=== PATIENT | male | born 1980 | race African-American/Black ===

== ENCOUNTER 2019-04-08 15:08 | Emergency (ER) | payer OTHER ==
[~2019-04-08] VITALS: Ht 185.4 cm; Wt 62.4 kg
[~2019-04-08 15:08] MED LIST: ATEN50TA PO; CYCL5TAB PO; HYDR-2761 PO; IBUP-1060 PO; LISI-338 PO; LISI2.5T PO
[2019-04-08] MEDS ORDERED: DIPHTH,PERTUSS(ACELL),TET TOX 0.5 ML DISP.SYRIN. VAX IM ONE (15:45)
[2019-04-08 15:50] VITALS: BP 156/95
[2019-04-08] MEDS ORDERED: HYDROcodone/APAP 5/325MG 1 TAB TABLET PO ONE (16:15)
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
--- NOTE | 2019-04-08 16:24 | RAD ---
CT HEAD WO CONTRAST History: Loss of consciousness, nausea and vomiting, function and last night Comparison: None. Technique: Noncontrast CT imaging was performed of the head. Exposure: One or more of the following individualized dose reduction techniques were utilized for this examination: 1. Automated exposure control 2. Adjustment of the mA and/or kV according to patient size 3. Use of iterative reconstruction technique. Findings: No acute extra-axial or parenchymal hemorrhage is identified. There is no significant intra-axial mass effect, midline shift, or extra-axial fluid collection. The carpenter-white differentiation of the major vascular territories is preserved. The ventricles, sulci, and cisterns are within normal limits in size and configuration. Mastoid air cells are aerated. There is what likely represents a mucous retention cyst of the right maxillary sinus posteriorly. No acute calvarial abnormality is identified. Impression: 1. No acute intracranial abnormality is identified. Electronically signed by: Charles Singer MD (04/08/2019 4:21 PM) [id number]
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
[2019-04-08 17:11] LABS: BILIRUBIN,URINE NEGATIVE (NEG); CLARITY,URINE CLEAR; COLOR,URINE YELLOW; NITRITE,URINE NEGATIVE (NEG); PH,URINE 6.5; PROTEIN,URINE NEGATIVE (NEG-TRACE)
[2019-04-08 17:19] LABS: BACTERIA,URINE 0 /HPF (0-FEW); RBC,URINE 0 /HPF (0-2)
[2019-04-08] MEDS ORDERED: MUPI22OI2 TP (17:35)
[2019-04-08] MEDS ORDERED: HYDR-2761 PO (17:35)
== END 2019-04-08 17:48 | disposition home or self-care (01) ==
LOC: ER 15:08 → EEVIPCON 15:08 → ER 17:48
DX: S31.31XA Laceration without foreign body of scrotum and testes, initial encounter (principal); S71.111A Laceration without foreign body, right thigh, initial encounter; R55 Syncope and collapse; X99.1XXA Assault by knife, initial encounter; Y93.89 Activity, other specified; Y92.89 Other specified places as the place of occurrence of the external cause; Y99.8 Other external cause status
CPT/HCPCS: 70450; 76870; 81001; 87086; 90471; 90715; 99285

== ENCOUNTER 2020-03-26 07:23 | Emergency (ER) | payer SELFPAY ==
[~2020-03-26 07:23] MED LIST changes: +MUPI22OI2 TP
== END 2020-03-26 07:49 | disposition left against medical advice (07) ==
LOC: ER 07:23
DX: M25.561 Pain in right knee (principal); Z53.21 Procedure and treatment not carried out due to patient leaving prior to being seen by health care provider